=== PATIENT | male | born 1960 | race Caucasian/White ===

== ENCOUNTER 2019-01-24 17:35 | Emergency (ER) | payer MEDICARE, OTHER ==
[2019-01-24] MEDS: SOD CHLORIDE 0.9% 500 ML IV (19:29)
== END 2019-01-24 21:36 | disposition home or self-care (01) ==
LOC: E/R 17:35
DX: I95.9 Hypotension, unspecified (principal); I12.0 Hypertensive chronic kidney disease with stage 5 chronic kidney disease or end stage renal disease; N18.6 End stage renal disease; E11.22 Type 2 diabetes mellitus with diabetic chronic kidney disease; I25.810 Atherosclerosis of coronary artery bypass graft(s) without angina pectoris; Z79.4 Long term (current) use of insulin; Z99.2 Dependence on renal dialysis
CPT/HCPCS: 93005; 99284-25